=== PATIENT | male | born 1955 | race Caucasian/White ===

== ENCOUNTER 2018-01-21 20:09 | Inpatient (IN) | payer MEDICARE, MEDICAID ==
[~2018-01-21] VITALS: Ht 182.9 cm; Wt 100.0 kg
[~2018-01-21 20:09] MED LIST: ASPI81TA52 PO; CLOP75TA35 PO; DIAZ5TAB PO; FENO48TA15 PO; GLUC100017 PO; ICOS1CAP PO; LEVO500T2 PO; LISI-600 PO; MELA3TAB PO; ROSU40TA PO; [UNRECOGNIZED DRUG - OTHER] PO
[2018-01-21] MEDS ORDERED: methylPREDNISolone sod succ 125mg/2ml vial IV ONE (20:15)
[2018-01-21] MEDS ORDERED: ipratropium/albuterol 3ml nebule NEB ONE (20:15)
[2018-01-21 20:58] LABS: HEMATOCRIT 23.8 % (42.0-52.0); HEMOGLOBIN 7.8 g/dl (14.0-17.9); MEAN CORPUSCULAR HEMOGLOBIN 26.2 PG (27.0-31.0); MEAN CORPUSCULAR HGB CONC 32.8 % (33.0-36.5); MEAN CORPUSCULAR VOLUME 79.8 FL (78-98); MEAN PLATELET VOLUME 6.4 FL (7.4-10.4); PLATELET COUNT 591 X10'3 (140-440); RED BLOOD COUNT 2.98 X10'6 (4.70-6.10); RED CELL DISTRIBUTION WIDTH 21.2 % (11.5-14.5); WHITE BLOOD COUNT 5.5 X10'3 (4.5-11.0)
[2018-01-21 21:00] LABS: ABG BASE EXCESS 3.8 mmol/L (-2.0-3.0); ABG HCO3 27.6 mmol/L (22.0-26.0); ABG OXYGEN SATURATION 98.4 % (95-98); ABG PCO2 (T) 38.1 mmHg (35.0-48.0); ABG PH (T) 7.478 (7.350-7.450); ABG PO2 (T) 136.6 mmHg (83-108); FCOHb 0.4 % (0.5-1.5); MINUTE VOLUME 15 L/min; RESPIRATORY RATE 16 b/min; RESPIRATORY RATE (OBSERVED) 21 b/min; TOTAL HEMOGLOBIN 8.6 G/dl (14.0-18.0)
[2018-01-21 21:09] LABS: INR 1.1 INR; PARTIAL THROMBOPLASTIN TIME 28 SECONDS (22-32); PROTHROMBIN TIME 10.9 SECONDS (9.0-12.0)
[2018-01-21 21:19] LABS: ALANINE AMINOTRANSFERASE 40 U/L (12-78); ALBUMIN 1.8 G/DL (3.4-5.0); ALBUMIN/GLOBULIN RATIO 0.4 (1.1-1.5); ALKALINE PHOSPHATASE 109 IU/L (46-116); ANION GAP 10 (8-16); ASPARTATE AMINO TRANSFERASE 35 U/L (10-37); BILIRUBIN,TOTAL 0.3 MG/DL (0.1-1.0); BLOOD UREA NITROGEN 16 MG/DL (7-18); BUN/CREATININE RATIO 17.6 (5.4-32.0); CALCIUM 8.8 MG/DL (8.5-10.1); CHLORIDE 104 MMOL/L (99-107); CREATININE 0.91 MG/DL (0.60-1.10); GLUCOSE 166 MG/DL (70-104); POTASSIUM 3.6 MMOL/L (3.5-5.1); SODIUM 142 MMOL/L (135-145); TOTAL CARBON DIOXIDE 28.1 MMOL/L (24-32); TOTAL PROTEIN 6.3 G/DL (6.4-8.2); eGFR 85 ML/MIN
[2018-01-21 22:21] LABS: TOTAL CELLS COUNTED 100
[2018-01-21 22:22] LABS: GIANT PLATELET FEW; LARGE PLATELETS FEW; PLATELET ESTIMATE INCREASED
[2018-01-21 22:24] LABS: ANISOCYTOSIS 3+
[2018-01-21 22:25] LABS: ELLIPTOCYTES FEW; HYPOCHROMASIA 1+; MICROCYTOSIS 1+; TEAR DROP CELLS FEW
[2018-01-21 22:37] LABS: POLYCHROMASIA 1+
[2018-01-22] MEDS ORDERED: normal saline 1000ml 1,000 ML IV SCH ×2 (00:09→16:20)
[2018-01-22] MEDS ORDERED: acetaminophen 325mg tablet PO PRN (00:10)
[2018-01-22] MEDS ORDERED: ondansetron/PF 4mg/2ml inj IV PRN (00:10)
[2018-01-22] MEDS ORDERED: HYDROcodone/acetaminophen 5mg/325mg tablet PO PRN (00:10)
[2018-01-22] MEDS: morphine 4 MG/ML inj SYRINge IV PRN ×2 (03:35→09:28)
[2018-01-22] MEDS ORDERED: LORazepam 2 mg/ml vial IV ONE (05:15)
[2018-01-22] MEDS: heparin, porcine 5000 units/ml vial SQ SCH ×2 (08:47→20:06)
[2018-01-22] MEDS: clopidogrel 75mg tablet PO SCH (08:48)
[2018-01-22] MEDS: atorvastatin 20mg tablet PO SCH (08:48)
[2018-01-22] MEDS: aspirin 81mg tablet.DR PO SCH (08:49)
[2018-01-22] MEDS: lisinopril 20mg tablet PO SCH (08:49)
[2018-01-22] MEDS ORDERED: normal saline 1000ML IV soln IVB ONE ×2 (11:20→14:05)
[2018-01-22] MEDS: fenofibrate 48mg tablet PO SCH (12:03)
[2018-01-22] MEDS ORDERED: digoxin 250mcg/ml 2ml ampule IV ONE ×2 (14:05→20:00)
[2018-01-22] MEDS ORDERED: FLUSH 10 MG ICATH ONE ×2 (14:45)
[2018-01-22] MEDS ORDERED: TPA CATHFLO ICATH ONE ×2 (14:45)
[2018-01-22] MEDS ORDERED: NORMAL SALINE ICATH ONE ×2 (14:45)
[2018-01-22] MEDS ORDERED: TAMS0.4C32 PO (15:03)
[2018-01-22] MEDS ORDERED: SENN-161 PO (15:03)
[2018-01-22] MEDS ORDERED: POLY17PO2 (15:03)
[2018-01-22] MEDS ORDERED: AMIO200T57 PO (15:03)
[2018-01-22] MEDS ORDERED: PROC-8 PO (15:03)
[2018-01-22] MEDS ORDERED: FOLI0.4T2 PO (15:03)
[2018-01-22] MEDS ORDERED: OXYC10TA47 PO (15:03)
[2018-01-22] MEDS ORDERED: METO25TA6 PO (15:03)
[2018-01-22] MEDS ORDERED: ONDA8TAB9 PO (15:03)
[2018-01-22] MEDS: CefTRIAXone/D5W-Rocephin 1gm 50 ML IV SCH (16:37)
[2018-01-22] MEDS ORDERED: EMPA1TAB PO (16:56)
[2018-01-22] MEDS: metroNIDAZOLE-Flagyl 500mg/NS 100 ML IV SCH (17:15)
[2018-01-22 19:00] VITALS: BP 85/52
[2018-01-22] MEDS: LORazepam 0.5 MG tablet PO PRN (20:04)
[2018-01-22] MEDS: normal saline 1000ml 1,000 ML IV SCH (20:30)
[2018-01-22] MEDS ORDERED: temazepam 15mg capsule PO PRN (21:00)
[2018-01-22 23:00] VITALS: BP 76/52
[2018-01-23] VITALS (9 sets, daily range): BP systolic 75–102; BP diastolic 53–74
[2018-01-23] MEDS: metroNIDAZOLE-Flagyl 500mg/NS 100 ML IV SCH ×2 (00:14→10:30)
[2018-01-23] MEDS ORDERED: digoxin 250mcg/ml 2ml ampule IV ONE (02:00)
[2018-01-23] MEDS: LORazepam 0.5 MG tablet PO PRN ×3 (02:48→22:27)
[2018-01-23] MEDS: normal saline 1000ml 1,000 ML IV SCH ×2 (02:56→16:14)
[2018-01-23 05:50] LABS: BASOPHILS % (AUTO) 0 % (0-1); EOSINOPHILS # (AUTO) 0.1 X10'3 (0-0.9); EOSINOPHILS % (AUTO) 0.9 % (0-6); HEMATOCRIT 25.7 % (42.0-52.0); HEMOGLOBIN 8.2 g/dl (14.0-17.9); LYMPHOCYTES # (AUTO) 0.1 X10'3 (1.1-4.8); LYMPHOCYTES % (AUTO) 1.6 % (21-51); MEAN CORPUSCULAR HEMOGLOBIN 26.1 PG (27.0-31.0); MEAN CORPUSCULAR VOLUME 81.4 FL (78-98); MEAN PLATELET VOLUME 7.1 FL (7.4-10.4); MONOCYTES # (AUTO) 1.5 X10'3 (0-0.9); MONOCYTES % (AUTO) 18.3 % (2-12); NEUTROPHILS # (AUTO) 6.4 X10'3 (1.8-7.7); NEUTROPHILS % (AUTO) 79.2 % (42-75); PLATELET COUNT 644 X10'3 (140-440); RED BLOOD COUNT 3.16 X10'6 (4.70-6.10); RED CELL DISTRIBUTION WIDTH 21.9 % (11.5-14.5); WHITE BLOOD COUNT 8.1 X10'3 (4.5-11.0)
[2018-01-23 05:53] LABS: ALBUMIN 1.4 G/DL (3.4-5.0); ANION GAP 7 (8-16); BLOOD UREA NITROGEN 23 MG/DL (7-18); BUN/CREATININE RATIO 19.8 (5.4-32.0); CALCIUM 8.2 MG/DL (8.5-10.1); CHLORIDE 108 MMOL/L (99-107); CREATININE 1.16 MG/DL (0.60-1.10); GLUCOSE 170 MG/DL (70-104); POTASSIUM 4.4 MMOL/L (3.5-5.1); SODIUM 143 MMOL/L (135-145); TOTAL CARBON DIOXIDE 28.2 MMOL/L (24-32); eGFR 64 ML/MIN
[2018-01-23] MEDS: lisinopril 20mg tablet PO SCH (08:00)
[2018-01-23] MEDS: heparin, porcine 5000 units/ml vial SQ SCH ×2 (08:00→19:59)
[2018-01-23] MEDS: CefTRIAXone/D5W-Rocephin 1gm 50 ML IV SCH (09:47)
[2018-01-23] MEDS: clopidogrel 75mg tablet PO SCH (09:47)
[2018-01-23] MEDS: oxyCODONE IR 5mg (immed. release) tablet PO PRN ×2 (09:48→16:13)
[2018-01-23] MEDS: atorvastatin 20mg tablet PO SCH (09:49)
[2018-01-23] MEDS: aspirin 81mg tablet.DR PO SCH (09:50)
[2018-01-23] MEDS ORDERED: amiodarone 200mg tablet PO ONE (10:55)
[2018-01-23] MEDS: fenofibrate 48mg tablet PO SCH (13:29)
[2018-01-23] MEDS ORDERED: normal saline 1000ml 1,000 ML IV ONE (14:25)
[2018-01-23] MEDS ORDERED: diltiazem 30mg tablet PO SCH (16:00)
[2018-01-23] MEDS: metroNIDAZOLE 500mg tablet PO SCH (16:14)
[2018-01-23] MEDS: morphine 4 MG/ML inj SYRINge IV PRN ×3 (17:36→22:19)
[2018-01-23] MEDS: metoprolol tartrate 12.5mg (1/2 tablet) PO SCH (19:47)
[2018-01-23] MEDS: amiodarone 200mg tablet PO SCH (19:58)
[2018-01-24] MEDS: metroNIDAZOLE 500mg tablet PO SCH ×3 (00:35→16:00)
[2018-01-24] MEDS: normal saline 1000ml 1,000 ML IV SCH ×2 (01:56→12:30)
[2018-01-24 03:00] VITALS: BP 86/64
[2018-01-24] MEDS: morphine 4 MG/ML inj SYRINge IV PRN ×9 (06:57→15:40)
[2018-01-24 07:00] VITALS: BP 99/58
[2018-01-24] MEDS: atorvastatin 20mg tablet PO SCH (08:00)
[2018-01-24] MEDS: aspirin 81mg tablet.DR PO SCH (08:00)
[2018-01-24] MEDS: amiodarone 200mg tablet PO SCH (08:00)
[2018-01-24] MEDS: CefTRIAXone/D5W-Rocephin 1gm 50 ML IV SCH (08:00)
[2018-01-24] MEDS: clopidogrel 75mg tablet PO SCH (08:00)
[2018-01-24] MEDS: lisinopril 20mg tablet PO SCH (08:00)
[2018-01-24] MEDS ORDERED: folic acid 0.4mg tablet PO SCH (08:00)
[2018-01-24] MEDS: metoprolol tartrate 12.5mg (1/2 tablet) PO SCH (08:00)
[2018-01-24] MEDS: fenofibrate 48mg tablet PO SCH (08:00)
[2018-01-24] MEDS: heparin, porcine 5000 units/ml vial SQ SCH (08:00)
[2018-01-24] MEDS ORDERED: tamsulosin 0.4mg capsule PO SCH (08:00)
[2018-01-24] MEDS ORDERED: acetaminophen 325mg tablet PO PRN (08:05)
[2018-01-24] MEDS: LORazepam 2 mg/ml vial IV PRN ×6 (09:04→15:06)
[2018-01-24] MEDS ORDERED: morphine 4 MG/ML inj SYRINge IV ONE (10:35)
[2018-01-24] MEDS ORDERED: LORazepam 2 mg/ml vial IV PRN (15:55)
[2018-01-24] MEDS ORDERED: morphine 4 MG/ML inj SYRINge IV PRN (15:55)
[2018-01-24] MEDS ORDERED: docusate sod 100mg capsule PO SCH (20:00)
== END 2018-01-24 18:24 | disposition expired | DRG 180 ==
LOC: ER 20:09 → ED HOLD 01-22 00:09 → EDBEDREQ 01-22 18:04 → CMPBEDREQ 01-22 20:01 → PCU 3S 01-22 20:02
PROVIDERS: ADMIT Family Medicine; ATTEND Internal Medicine
PROC: 5A09457 Assistance with Respiratory Ventilation, 24-96 Consecutive Hours, Continuous Positive Airway Pressure (ICD-10-PCS; principal; 2018-01-21)
PROC: 3E0L3GC Introduction of Other Therapeutic Substance into Pleural Cavity, Percutaneous Approach (ICD-10-PCS; 2018-01-22)
DX: C34.91 Malignant neoplasm of unspecified part of right bronchus or lung (principal); J96.21 Acute and chronic respiratory failure with hypoxia; J91.0 Malignant pleural effusion; C78.7 Secondary malignant neoplasm of liver and intrahepatic bile duct; Z99.81 Dependence on supplemental oxygen; D64.9 Anemia, unspecified; E11.9 Type 2 diabetes mellitus without complications; J93.81 Chronic pneumothorax; I48.91 Unspecified atrial fibrillation; E78.00 Pure hypercholesterolemia, unspecified; F41.9 Anxiety disorder, unspecified; I10 Essential (primary) hypertension; I25.10 Atherosclerotic heart disease of native coronary artery without angina pectoris; I25.2 Old myocardial infarction; Z51.5 Encounter for palliative care; Z66 Do not resuscitate; R00.0 Tachycardia, unspecified; Z79.899 Other long term (current) drug therapy; Z79.82 Long term (current) use of aspirin; Z87.891 Personal history of nicotine dependence; Z80.1 Family history of malignant neoplasm of trachea, bronchus and lung
CPT/HCPCS: 36415; 36600; 71045; 71250; 80048; 80053; 82803; 83036; 83880; 84484; 85018; 85025; 85610; 85730; 87070; 93005; 94640; 94660; 94760; 96374; 99291; A4315; A6257; A6258; J0696; J1160; J1644; J2060; J2270; J2405; J2930; J2997; J3490; J7030; J7040